=== PATIENT | female | born 1950 | race Caucasian/White ===

== ENCOUNTER 2019-06-27 10:57 | Outpatient (REF) | payer MEDICARE, BC, SELFPAY ==
[2019-06-27 19:51] LABS: Glucose 78 mg/dL (74-106)
[2019-06-27 20:04] LABS: Calculated LDL 138 mg/dL (<100); Cholesterol 223 mg/dL (<200); HDL Cholesterol 78 mg/dL (40-60); Triglyceride 38 mg/dL (<150)
== END 2019-06-27 11:17 ==
LOC: NCHCN 10:57
PROVIDERS: PCP Physician Assistant; Visit Provider Nurse Practitioner Family
DX: E78.5 Hyperlipidemia, unspecified (principal)
CPT/HCPCS: 80061; 82947

== ENCOUNTER 2021-09-18 21:57 | Outpatient (REF) | payer MEDICARE, SELFPAY ==
[2021-09-18 19:15] LABS: Abs Immature Grans 0.01 10^3/uL (0.0-0.06); Absolute Basophil Count 0.04 10^3/uL (0.0-0.2); Absolute Eosinophil Count 0.11 10^3/uL (0.0-0.7); Absolute Lymphocyte Count 1.65 10^3/uL (1.2-3.4); Absolute Monocyte Count 0.51 10^3/uL (0.1-0.8); Absolute Neutrophil Count 4.21 10^3/uL (1.2-6.7); Basophils % 0.6; Eosinophils % 1.7; HCT 37.9 % (36.0-46.0); HGB 12.7 g/dL (11.2-15.7); Immature Grans % 0.2; Lymphocytes % 25.3; MCHC 33.5 % (32.0-36.0); MCV 89 fL (80-95); MPV 10.8 fL (8.0-11.0); Monocytes % 7.8; Neutrophils % 64.4; Platelet Count 280 10^3/uL (130-400); RBC 4.24 10^6/uL (3.93-5.22); RDW-SD 38.9 fL; WBC 6.53 10^3/uL (4.4-10.8)
[2021-09-18 19:36] LABS: ALT 22 U/L (14-59); AST 21 U/L (15-37); Albumin 3.7 g/dL (3.4-5.0); Alkaline Phosphatase 64 U/L (46-116); Anion Gap 7.3 mmol/L (3-11); BUN 23 mg/dL (7-18); Bilirubin, Total 0.4 mg/dL (0.2-1.0); CO2 26.7 mmol/L (21.0-32.0); Calcium 9.2 mg/dL (8.5-10.1); Chloride 107 mmol/L (98-107); Estimated GFR 54.66 (mL/min/1.73m2); Glucose 90 mg/dL (74-106); Potassium 4.2 mmol/L (3.5-5.1); Sodium 141 mmol/L (136-145); Total Protein 6.4 g/dL (6.4-8.2)
== END 2021-09-18 21:58 | disposition home or self-care (01) ==
LOC: NCHCN 21:57
PROVIDERS: PCP Physician Assistant; Visit Provider Physician Assistant
DX: E78.5 Hyperlipidemia, unspecified (principal); L29.8 Other pruritus
CPT/HCPCS: 80053; 85025

== ENCOUNTER 2022-01-26 06:56 | Day surgery (SDC) | payer MEDICARE, SELFPAY ==
--- NOTE | 2022-01-26 04:55 | W.ANESPRE ---
General Info Date of Service Date Performed: 01/26/22 Height: 5 ft 3 in Weight: 61 kg Body Mass Index (BMI): 23.8 Surgical Procedure: Operation Date: 01/26/22 08:25 Proposed Procedure Side Surgeon p Cataract Extraction with IOL Implant Left Flash Hernandez MD Meds Allergies and Home Medications Allergies Allergy/AdvReac Type Severity Reaction Status Date / Time No Known Allergies Allergy Unverified 01/26/22 07:31 Home Medication Medication Instructions Recorded multivitamin 1 tab PO DAILY 01/26/22 Current Visit Medications: Current Medications Generic Name Dose Route Start Last Admin Trade Name Freq PRN Reason Stop Dose Admin Acetaminophen 1,000 mg 01/26/22 06:00 Acetaminophen 500 Mg Tab PO Q4H PRN PRN Miscellaneous Medication 0 ml 01/26/22 06:00 Prednisolone 1%, Moxifloxacin 0.5%, Nepafenac 0.1% 5ml Btl OS DIRECTED MINDY Miscellaneous Medication 0 ml 01/26/22 06:00 Tropicam./Phenyleph. (1/2.5%) 5 Ml Btl OS DIRECTED MINDY Tetracaine HCl 0 ml 01/26/22 06:00 Tetracaine 0.5% 4 Ml Btl OS DIRECTED MINDY PFSH Active Problems Active Problems: Problem Status Onset Code Posterior subcapsular age-related cataract of left eye H25.042 Cortical cataract of left eye H26.9 Nuclear sclerotic cataract of left eye H25.12 Medical History Medical History (Updated 01/25/22 @ 17:54 by Flash Hernandez MD) HLD (hyperlipidemia) Itchy skin Rectal prolapse Surgical History Surgical History (Updated 01/23/22 @ 08:48 by Robbi Maloney) History of arthroplasty of finger of left hand History of total abdominal hysterectomy ovaries retained Hx of cholecystectomy Vital Signs and Lab Results Vital Signs Most Recent Vital Signs in EMR: Temp Pulse Resp BP Pulse Ox 36.6 C 44 L 16 120/57 L 99 01/26/22 07:32 01/26/22 07:32 01/26/22 07:32 01/26/22 07:32 01/26/22 07:32 Lab Results Blood Type / Crossmatch: No Data to Display Complete Blood Count: No Data to Display Complete Metabolic Panel: No Data to Display Liver Function Panel: No Data to Display Coagulation Panel: No Data to Display Cardiac Panel: No Data to Display Arterial Blood Gas: No Data to Display Venous Blood Gas: No Data to Display Pancreas Panel: No Data to Display Thyroid Panel: No Data to Display Infectious Disease: No Data to Display Blood Cultures: No Data to Display Toxicology Panel: No Data to Display Anesthesia Assessment and Plan Anesthesia History Personal History: No History of Anesthesia Complications Family History: No Family History of Anesthesia Complications Exercise Tolerance Exercise Tolerance: Metabolic Equivalents>4 Cardiac & Pulmonary Exam Cardiac Exam: Normal S1/S2 Heart Sounds Pulmonary Exam: Clear Bilateral Breath Sounds Implantable Cardiac Device Does patient have a Pacemaker or an ICD?: No Airway Exam Known Difficult Airway: No Mallampati Class: 3 Mouth Opening: Normal (> 3cm) Thyromental Distance: Greater than 3 cm Neck Range of Motion: Full ROM Neck Circumference: Normal Teeth Condition: Normal Dentition ASA Classification ASA Score: ASA 2 Emergency Case?: No NPO Status NPO Status: NPO Clears >2 hours, Solids >8 hours Anesthesia Plan Resuscitation Status: Full Code Anesthesia Technique: MAC Anesthesia Airway Planned: Natural Airway Monitors Used: Standard Monitors Preoperative Comments:: 72 yo female for cataract removal. Sig PMHX: zoltan major. Discussed MKO vs no MKO, would like no MKO with an introp IV and midaz if needed.
[2022-01-26] MEDS: Tropicam./Phenyleph. (1/2.5%) 5 ML BTL OS ×3 (07:30→07:42)
[2022-01-26 07:32] VITALS: BP 120/57; PULSE 44; RESP 16; TEMP 36.6; O2SAT 99
[2022-01-26 07:37] VITALS: BMI 23.8
[2022-01-26] MEDS: Lidocaine 2% Jelly 6 ML SYR (08:21)
[2022-01-26] MEDS: Tetracaine 0.5% 4 ML BTL OS (08:21)
[2022-01-26] MEDS: Balanced Salt Soln.-PLUS 500 ML BAG (08:29)
[2022-01-26] MEDS: Duovisc Viscoelastic System EACH 1 EACH (08:29)
[2022-01-26] MEDS: Povidone-Iodine Ophth 30 ML BTL (08:31)
[2022-01-26] MEDS: Lidocaine 1% Multi-Dose 10 ML VIAL (08:31)
[2022-01-26 08:49] VITALS: BP 111/71; PULSE 41; RESP 18; TEMP 36.4; O2SAT 98
--- NOTE | 2022-01-26 08:49 | W.PM.DSUDISC ---
Discharge Plan Disposition Patient Disposition: HOME Condition: Good Discharge Details Attending Provider: Flash Hernnadez Primary Care Provider: Angel Christine Home Meds and New Rx's Prescriptions: No Action multivitamin Tablet 1 tab PO DAILY Discharge Instructions Stand Alone Forms: Post-op Topical Cataract, Leo Ramirez (DSU) Discharge Orders Discharge Orders: Discharge Order (Routine); Ordered 01/26/22 Ordered By: Flash Hernandez DS: Diagnosis Discharge Diagnosis (1) Posterior subcapsular age-related cataract of left eye: Status: Resolved (2) Cortical cataract of left eye: Status: Resolved (3) Nuclear sclerotic cataract of left eye: Status: Resolved
--- NOTE | 2022-01-26 08:49 | W.PM.OP ---
Date of service: 01/26/22 Time of Service: 08:49 Operative Note Operative Note DATE OF PROCEDURE: 01/26/22 PRE-OP DIAGNOSIS: Nuclear/cortical/posterior subcapsular cataract, left eye POST-OP DIAGNOSIS: same PROCEDURE: Cataract extraction using phacoemulsification with intraocular lens implant, left eye SURGEON: Flash Hernandez ANESTHESIA TYPE: Local By Surgeon and MAC Refer to Anesthesia Record PATHOLOGY: none sent COMPLICATIONS: None Patient was transported to: same day Patient's condition: stable Implants: José and José / [employer] Tecnis [id number] Indications: Progressive decreased vision due to cataract, left eye Procedure Description: CATARACT SURGERY OPERATIVE REPORT PREOPERATIVE DIAGNOSIS: 1. Nuclear/cortical/posterior subcapsular cataract, left eye POSTOPERATIVE DIAGNOSIS: Same OPERATION: 1. Cataract extraction using phacoemulsification with posterior chamber intraocular lens implant, left eye. IOL: IOL Casing In Line Setter/Model: José & José / MOUSTAPHA Tecnis [id number] IOL Power: + 22.0 diopters IOL Serial Number: [id number] Optic Diameter: 6.0 mm Haptic/Overall Diameter: 13.0 mm PHACO INFO: Javed RecordSetterurion Vision System with OZil and Active Fluidics Cumulative Dispersed Energy (CDE): 4.43 seconds SURGEON: Flash Hernandez MD, ISABEL ANESTHESIA: Monitored A [facility] (MAC), with local sub-tenon's anesthetic infiltration COMPLICATIONS: None SPECIMENS: None INDICATIONS FOR PROCEDURE: The patient is a 72-year-old lady with history of diminished visual acuity in her left eye secondary to development of nuclear/cortical/posterior subcapsular cataract. The option of cataract surgery was offered to the patient and she felt she was symptomatic enough that she wished to proceed. PROCEDURE: The correct surgical eye was identified and marked as the left eye and the pupil was dilated in the preoperative area using mydriatics and cycloplegics. The dilated pupil size was 7.0 mm. The patient elected to proceed without oral sedation. The patient was brought to the operating room where cardiopulmonary monitoring was instituted and surgical time-out was performed, confirming the correct operative eye and IOL power. Topical anesthesia was administered and ophthalmic povidone-iodine 5% was instilled into the conjunctival fornices. Lidocaine gel was applied to the cornea and the zana-ocular area was prepped with Betadine 10% solution and draped in the usual sterile fashion for intraocular surgery, including an aperture drape. A Tegaderm transparent film dressing was cut in half and used to cover the lashes and lid margins. Care was taken to sequester the lashes and lid margins under the Tegaderm dressing. A lid speculum was placed between the lids of the operative eye and the Javed LuxOR Revalia operating microscope was maneuvered into position. Maya scissors were then used to make a conjunctival buttonhole approximately 6mm posterior to the limbus in the inferonasal quadrant. Blunt dissection was carried out to expose bare sclera, and a blunt-tipped sub-tenon?s anesthesia cannula was introduced and passed posteriorly along the globe where non-preserved plain lidocaine was injected into posterior sub-Tenon?s space. A sideport knife was used to make a paracentesis port superiorly/superiortemporally. Intraocular phenylephrine/lidocaine was injected int the anterior chamber.. The anterior chamber was filled with viscoelastic. A keratome knife was used to construct a 2-plane near-clear corneal tunnel extending 2.0mm into clear cornea temporally. A flap was raised on the anterior capsule and capsulorhexis forceps were used to complete a continuous curvilinear capsulorhexis of 5.0 mm. Balanced salt solution was then used to perform cortical cleaving hydrodissection and nuclear hydrodelineation until the lens could be freely rotated within the capsular bag. The lens nucleus was then disassembled and removed within the capsular bag and iris plane using phacoemulsification. Residual cortical material was removed using the 45-degree angled silicone I/A tip with 0.3mm port. The posterior capsule was carefully polished to remove as much residual lens epithelial cells as safely possible. The capsular bag was then inflated and the anterior chamber deepened with viscoelastic. The lens implant described above was inserted into the capsular bag using the MOUSTAPHA [place] Injector. A Kuglen hook was used to dial the IOL into position. Residual viscoelastic was then removed first from posterior to the IOL, then from the anterior chamber using the I/A handpiece. The lens implant was noted to center nicely within the capsular bag. The incisions were stromally hydrated, and the anterior chamber was reformed using BSS. Then 0.5cc of moxifloxacin 1.0mg/ml were injected into the capsular bag and anterior chamber. The incisions were checked with a Weck spear and found to be secure. Several drops of ophthalmic povidone-iodine 5% were then applied to the eye followed by two drops of Imprimis combination prednisolone/moxifloxacin/nepafenac solution. The drapes were removed and a clear plastic protective eye shield was placed over the eye. The patient was then returned to Same Day Surgery in stable condition.
--- NOTE | 2022-01-26 09:06 | W.ANESPOSTOP ---
Postoperative Evaluation Date, Time and Location Date Performed: 01/26/22 Time Performed: 08:56 Patient Location: Day Surgery Unit Vital Signs Most Recent Imported Vital Signs: Most Recent Vital Signs Temp Pulse Resp BP Pulse Ox 36.4 C L 41 L 18 111/71 98 01/26/22 08:49 01/26/22 08:49 01/26/22 08:49 01/26/22 08:49 01/26/22 08:49 Pain Score Most Recent Pain Score: Most Recent Pain Score Pain Level 0 01/26/22 08:49 Assessment Mental Status: Awake (Alert & Oriented to Patient Baseline) Airway and Respiratory Function: Patent airway with normal (patient baseline) respiratory exam Cardiovascular Function: Hemodynamically Stable Hydration Status: Adequately Hydrated Nausea & Vomiting: No Nausea or Vomiting Pain: Pt. Denies Any Pain Peripheral Nerve Block: Patient did not receive a nerve block
== END 2022-01-26 09:33 | disposition home or self-care (01) ==
PROVIDERS: PCP Physician Assistant; Visit Provider Ophthalmology
PROC: (CPT 66984; principal; 2022-01-26 08:15)
DX: H25.812 Combined forms of age-related cataract, left eye (principal)
CPT/HCPCS: 66984; V2632

== ENCOUNTER 2022-02-09 09:31 | Day surgery (SDC) | payer MEDICARE, SELFPAY ==
[2022-02-09 10:00] VITALS: BP 108/71; PULSE 47; RESP 16; TEMP 37; O2SAT 100
[2022-02-09] MEDS: Tropicam./Phenyleph. (1/2.5%) 5 ML BTL OD ×3 (10:12→10:25)
--- NOTE | 2022-02-09 11:03 | W.ANESPRE ---
General Info Date of Service Date Performed: 02/09/22 Height: 5 ft 3 in Weight: 62.9 kg Body Mass Index (BMI): 24.5 Surgical Procedure: Operation Date: 02/09/22 11:25 Proposed Procedure Side Surgeon p Cataract Extraction with IOL Implant Right Flash Hernandez MD Meds Allergies and Home Medications Allergies Allergy/AdvReac Type Severity Reaction Status Date / Time No Known Allergies Allergy Unverified 02/09/22 09:58 Home Medication Medication Instructions Recorded multivitamin 1 tab PO DAILY 01/26/22 Current Visit Medications: Current Medications Generic Name Dose Route Start Last Admin Trade Name Freq PRN Reason Stop Dose Admin Acetaminophen 1,000 mg 02/09/22 06:00 Acetaminophen 500 Mg Tab PO Q4H PRN PRN Miscellaneous Medication 0 ml 02/09/22 06:00 Prednisolone 1%, Moxifloxacin 0.5%, Nepafenac 0.1% 5ml Btl OD DIRECTED MINDY Miscellaneous Medication 0 ml 02/09/22 06:00 02/09/22 10:25 Tropicam./Phenyleph. (1/2.5%) 5 Ml Btl OD 1 drp DIRECTED MINDY Administration Tetracaine HCl 0 ml 02/09/22 06:00 Tetracaine 0.5% 4 Ml Btl OD DIRECTED MINDY PFSH Active Problems Active Problems: Problem Status Onset Code Cortical cataract of right eye H26.9 Nuclear sclerotic cataract of right eye H25.11 Posterior subcapsular age-related cataract of left eye H25.042 Cortical cataract of left eye H26.9 Nuclear sclerotic cataract of left eye H25.12 Medical History Medical History HLD (hyperlipidemia) Itchy skin Rectal prolapse Surgical History Surgical History History of arthroplasty of finger of left hand History of total abdominal hysterectomy ovaries retained Hx of cholecystectomy Tobacco Smoking/Tobacco Use Status: Never Alcohol Alcohol Intake: never Substance Use Substance use type: does not use Vital Signs and Lab Results Vital Signs Most Recent Vital Signs in EMR: Most Recent Vital Signs Temp Pulse Resp BP Pulse Ox 37 C 47 L 16 108/71 100 02/09/22 10:00 02/09/22 10:00 02/09/22 10:00 02/09/22 10:00 02/09/22 10:00 Lab Results Blood Type / Crossmatch: No Data to Display Complete Blood Count: No Data to Display Complete Metabolic Panel: No Data to Display Liver Function Panel: No Data to Display Coagulation Panel: No Data to Display Cardiac Panel: No Data to Display Arterial Blood Gas: No Data to Display Venous Blood Gas: No Data to Display Pancreas Panel: No Data to Display Thyroid Panel: No Data to Display Infectious Disease: No Data to Display Blood Cultures: No Data to Display Toxicology Panel: No Data to Display Anesthesia Assessment and Plan Anesthesia History Personal History: No History of Anesthesia Complications Family History: No Family History of Anesthesia Complications Exercise Tolerance Exercise Tolerance: Metabolic Equivalents>4 Pertinent Negatives Pertinent Negatives: No Symptoms of GERD, No Major Cardiovascular Symptoms or Complaints, No Major Pulmonary Symptoms or Complaints (Quit 1975) and No History of CVA/TIA Cardiac & Pulmonary Exam Cardiac Exam: Normal S1/S2 Heart Sounds Pulmonary Exam: Clear Bilateral Breath Sounds Implantable Cardiac Device Does patient have a Pacemaker or an ICD?: No Airway Exam Known Difficult Airway: No Mallampati Class: 1 Mouth Opening: Normal (> 3cm) Thyromental Distance: Greater than 3 cm Neck Range of Motion: Full ROM Neck Circumference: Normal Teeth Condition: Normal Dentition Airway Comments: #21 and 11 capped ASA Classification ASA Score: ASA 2 Emergency Case?: No NPO Status NPO Status: NPO Clears >2 hours, Solids >8 hours Anesthesia Plan Resuscitation Status: Full Code Anesthesia Technique: MAC Anesthesia Airway Planned: Natural Airway Monitors Used: Standard Monitors
[2022-02-09 11:06] VITALS: BMI 24.5
[2022-02-09] MEDS: Tetracaine 0.5% 4 ML BTL OD (11:26)
[2022-02-09] MEDS: Balanced Salt Soln.-PLUS 500 ML BAG (11:27)
[2022-02-09] MEDS: Duovisc Viscoelastic System EACH 1 EACH (11:28)
[2022-02-09] MEDS: Lidocaine 2% Jelly 6 ML SYR (11:29)
[2022-02-09] MEDS: Povidone-Iodine Ophth 30 ML BTL (11:30)
--- NOTE | 2022-02-09 11:42 | ROE_ITS ---
Date of service: 02/09/22 Time of Service: 11:43 Operative Note Operative Note DATE OF PROCEDURE: 02/09/22 PRE-OP DIAGNOSIS: Nuclear/cortical cataract, right eye POST-OP DIAGNOSIS: same PROCEDURE: Cataract extraction using phacoemulsification with intraocular lens implant, right eye SURGEON: Flash Hernandez ANESTHESIA TYPE: Local By Surgeon and MAC Refer to Anesthesia Record ESTIMATED BLOOD LOSS: 0 PATHOLOGY: none sent COMPLICATIONS: None Patient was transported to: same day Patient's condition: stable Implants: José & José/MOUSTAPHA Tecnis [id number] Indications: Progressive visual loss due to cataract, right eye Procedure Description: CATARACT SURGERY OPERATIVE REPORT PREOPERATIVE DIAGNOSIS: 1. Nuclear/cortical cataract, right eye POSTOPERATIVE DIAGNOSIS: Same OPERATION: 1. Cataract extraction using phacoemulsification with posterior chamber intraocular lens implant, right eye. IOL: IOL Superintendent System Operation/Model: José & José / MOUSTAPHA Tecnis [id number] IOL Power: + 21.0 diopters IOL Serial Number: [id number] Optic Diameter: 6.0mm Haptic/Overall Diameter: 13.0mm PHACO INFO: Javed [employer] Ltdurion Vision System with OZil and Active Fluidics Cumulative Dispersed Energy (CDE): 8.47 seconds SURGEON: Flash Hernandez MD, ISABEL ANESTHESIA: Monitored Anesthesia Care (MAC), with local sub-tenon's anesthetic infiltration COMPLICATIONS: None SPECIMENS: None INDICATIONS FOR PROCEDURE: The patient is a 72-year-old lady with history of diminished visual acuity in her right eye secondary to the development of nuclear/cortical cataract. She has already undergone cataract surgery in the left eye and is doing well postoperatively. She now presents for cataract surgery in the right eye PROCEDURE: The correct surgical eye was identified and marked as the right eye and the pupil was dilated in the preoperative area using mydriatics and cycloplegics. The dilated pupil size was 7.0 mm. The patient elected to proceed without oral sedation. The patient was brought to the operating room where cardiopulmonary monitoring was instituted and surgical time-out was performed, confirming the correct operative eye and IOL power. Topical anesthesia was administered and ophthalmic povidone-iodine 5% was instilled into the conjunctival fornices. Lidocaine gel was applied to the cornea and the zana-ocular area was prepped with Betadine 10% solution and draped in the usual sterile fashion for intraocular surgery, including an aperture drape. A Tegaderm transparent film dressing was cut in half and used to cover the lashes and lid margins. Care was taken to sequester the lashes and lid margins under the Tegaderm dressing. A lid speculum was placed between the lids of the operative eye and the Javed LuxOR Revalia operating microscope was maneuvered into position. Maya scissors were then used to make a conjunctival buttonhole approximately 6mm posterior to the limbus in the inferonasal quadrant. Blunt dissection was carried out to expose bare sclera, and a blunt-tipped sub-tenon?s anesthesia cannula was introduced and passed posteriorly along the globe where non- preserved plain lidocaine was injected into posterior sub-Tenon?s space. A sideport knife was used to make a paracentesis port inferotemporally. Intraocular phenylephrine/lidocaine was injected into the anterior chamber. The anterior chamber was filled with viscoelastic. A keratome knife was used to construct a 2-plane near-clear corneal tunnel extending 2.0mm into clear cornea superiortemporally. A flap was raised on the anterior capsule and capsulorhexis forceps were used to complete a continuous curvilinear capsulorhexis of 5.0 mm. Balanced salt solution was then used to perform cortical cleaving hydrodissection and nuclear hydrodelineation until the lens could be freely rotated within the capsular bag. The lens nucleus was then disassembled and removed within the capsular bag and iris plane using phacoemulsification. Residual cortical material was removed using the I/A handpiece. The posterior capsule was carefully polished to remove as much residual lens epithelial cells as safely possible. The capsular bag was then inflated and the anterior chamber deepened with viscoelastic. The lens implant described above was inserted into the capsular bag using the MOUSTAPHA [place] Injector. A Kuglen hook was used to dial the IOL into position. Residual viscoelastic was then removed first from posterior to the IOL, then from the anterior chamber using the I/A handpiece. The lens implant was noted to center nicely within the capsular bag. The incisions were stromally hydrated, and the anterior chamber was reformed using BSS. Then 0.5cc of moxifloxacin 1.0mg/ml were injected into the capsular bag and anterior chamber. The incisions were checked with a Weck spear and found to be secure. Several drops of ophthalmic povidone-iodine 5% were then applied to the eye followed by two drops of Imprimis combination prednisolone/moxifloxacin/nepafenac solution. The drapes were removed and a clear plastic protective eye shield was placed over the eye. The patient was then returned to Same Day Surgery in stable condition.
--- NOTE | 2022-02-09 11:42 | W.PM.DSUDISC ---
Discharge Plan Disposition Patient Disposition: HOME Condition: Good Discharge Details Attending Provider: Flash Hernandez Primary Care Provider: Narcisa Mccollum Home Meds and New Rx's Prescriptions: No Action multivitamin Tablet 1 tab PO DAILY Discharge Instructions Stand Alone Forms: Post-op Topical Cataract, Leo Ramirez (DSU) Discharge Orders Discharge Orders: Discharge Order (Routine); Ordered 02/09/22 Ordered By: Flash Hernandez DS: Diagnosis Discharge Diagnosis (1) Cortical cataract of right eye: Status: Resolved (2) Nuclear sclerotic cataract of right eye: Status: Resolved
[2022-02-09 11:43] VITALS: BP 110/63; PULSE 44; RESP 16; TEMP 36.2; O2SAT 96
--- NOTE | 2022-02-09 11:43 | W.ANESPOSTOP ---
Postoperative Evaluation Date, Time and Location Date Performed: 02/09/22 Time Performed: 11:44 Patient Location: Day Surgery Unit Vital Signs Most Recent Imported Vital Signs: Most Recent Vital Signs Temp Pulse Resp BP Pulse Ox 37 C 47 L 16 108/71 100 02/09/22 10:00 02/09/22 10:00 02/09/22 10:00 02/09/22 10:00 02/09/22 10:00 Most Recent Manually Entered Vital Signs: Adult Blood Pressure: 110/63 Heart Rate: 44 Respirations: 12 Oxygen Saturation (%): 98 Temperature (C): 36.3 C Pain Score (0-10 Scale): 0 Pain Score Most Recent Pain Score: Most Recent Pain Score Pain Level 0 02/09/22 10:00 Assessment Mental Status: Awake (Alert & Oriented to Patient Baseline) Airway and Respiratory Function: Patent airway with normal (patient baseline) respiratory exam Cardiovascular Function: Hemodynamically Stable Hydration Status: Adequately Hydrated Nausea & Vomiting: No Nausea or Vomiting Pain: Pt. Denies Any Pain Peripheral Nerve Block: Patient did not receive a nerve block
[2022-02-09 11:44] VITALS: BP 110/63; PULSE 44; RESP 12; TEMPC 36.3; O2SAT 98
== END 2022-02-09 12:05 | disposition home or self-care (01) ==
LOC: SUR 09:31
PROVIDERS: PCP Physician Assistant; Visit Provider Ophthalmology
PROC: (CPT 66984; principal; 2022-02-09 11:15)
DX: H25.11 Age-related nuclear cataract, right eye (principal); E78.5 Hyperlipidemia, unspecified
CPT/HCPCS: 66984; V2632

== ENCOUNTER 2022-09-15 12:02 | Outpatient (REF) | payer MEDICARE, SELFPAY ==
[2022-09-15 19:12] LABS: ALT 41 U/L (14-59); AST 33 U/L (15-37); Albumin 3.5 g/dL (3.4-5.0); Alkaline Phosphatase 63 U/L (46-116); Anion Gap 8.5 mmol/L (3-11); BUN 20 mg/dL (7-18); Bilirubin, Total 0.4 mg/dL (0.2-1.0); CO2 28.5 mmol/L (21.0-32.0); CREATININE 0.8 mg/dL (0.55-1.02); Calcium 9.5 mg/dL (8.5-10.1); Chloride 109 mmol/L (98-107); Estimated GFR 78.24 (mL/min/1.73m2); Glucose 97 mg/dL (74-106); LDL CHOLESTEROL 90 mg/dL (<100); Potassium 4.2 mmol/L (3.5-5.1); Sodium 146 mmol/L (136-145); Total Protein 6.4 g/dL (6.4-8.2)
== END 2022-09-15 12:03 | disposition home or self-care (01) ==
LOC: NCHCN 12:02
PROVIDERS: PCP Physician Assistant; Visit Provider Physician Assistant
DX: E78.5 Hyperlipidemia, unspecified (principal)
CPT/HCPCS: 80053; 83721

== ENCOUNTER 2023-09-21 12:48 | Outpatient (REF) | payer MEDICARE, SELFPAY ==
[2023-09-21 19:31] LABS: ALT 37 U/L (14-59); AST 28 U/L (15-37); Albumin 3.7 g/dL (3.4-5.0); Alkaline Phosphatase 69 U/L (46-116); BUN 20 mg/dL (7-18); Bilirubin, Total 0.5 mg/dL (0.2-1.0); CREATININE 0.9 mg/dL (0.55-1.02); Calcium 9.8 mg/dL (8.5-10.1); Chloride 109 mmol/L (98-107); Glucose 134 mg/dL (74-106); LDL CHOLESTEROL 92 mg/dL (<100); Sodium 146 mmol/L (136-145); Total Protein 6.5 g/dL (6.4-8.2)
== END 2023-09-21 12:49 | disposition home or self-care (01) ==
LOC: NCHCN 12:48
PROVIDERS: PCP Physician Assistant; Visit Provider Physician Assistant
DX: E78.5 Hyperlipidemia, unspecified (principal)
CPT/HCPCS: 80053; 83721; 83615

== ENCOUNTER → 2024-09-29 10:04 | Outpatient (BNVA) | payer MEDICARE, SELFPAY | PROVIDERS: PCP Physician Assistant; Referring Provider Physician Assistant; Visit Provider Physician Assistant | DX: M17.11 Unilateral primary osteoarthritis, right knee (principal); M70.51 Other bursitis of knee, right knee; S83.206A Unspecified tear of unspecified meniscus, current injury, right knee, initial encounter; W11.XXXA Fall on and from ladder, initial encounter | CPT/HCPCS: 20610; J1010 ==

== ENCOUNTER 2024-10-04 09:36 | Outpatient (REF) | payer MEDICARE, SELFPAY ==
[2024-10-04 20:56] LABS: ALT 23 U/L (14-59); AST 20 U/L (15-37); Albumin 3.9 g/dL (3.4-5.0); Alkaline Phosphatase 70 U/L (46-116); Anion Gap 3.2 mmol/L (3-11); BUN 22 mg/dL (7-18); Bilirubin, Total 0.5 mg/dL (0.2-1.0); CO2 30.8 mmol/L (21.0-32.0); CREATININE 0.9 mg/dL (0.55-1.02); Calcium 10.4 mg/dL (8.5-10.1); Calculated LDL 125 mg/dL (<100); Chloride 107 mmol/L (98-107); Cholesterol 220 mg/dL (<200); Estimated GFR 67.08 (mL/min/1.73m2); Glucose 89 mg/dL (74-106); HDL Cholesterol 83 mg/dL (>or=50); Sodium 141 mmol/L (136-145); Total Protein 7.1 g/dL (6.4-8.2); Triglyceride 63 mg/dL (<150)
[2024-10-06 10:19] LABS: HIV-1/2 Ag & Ab Screen Negative (Negative)
[2024-10-06 10:30] LABS: Hepatitis C Ab w Rflx HCV PCR Negative (Negative)
== END 2024-10-04 09:37 | disposition home or self-care (01) ==
LOC: NCHCN 09:36
PROVIDERS: PCP Physician Assistant; Visit Provider Physician Assistant
DX: E78.5 Hyperlipidemia, unspecified (principal); Z00.00 Encounter for general adult medical examination without abnormal findings
CPT/HCPCS: 80053; 80061; 86803; 87389